=== PATIENT | male | born 1975 | race Caucasian/White ===

== ENCOUNTER 2018-07-03 15:09 | Emergency (ER) | payer MEDICAID ==
[~2018-07-03] VITALS: Ht 177.8 cm; Wt 112.0 kg
[2018-07-03 15:27] VITALS: Ht 177.8 cm; Wt 112.0 kg
[2018-07-03 17:54] VITALS: BP 128/87
== END 2018-07-03 17:54 | disposition home or self-care (01) ==
LOC: ED 15:09
DX: S91.332A Puncture wound without foreign body, left foot, initial encounter (principal); K04.7 Periapical abscess without sinus; I10 Essential (primary) hypertension; E11.9 Type 2 diabetes mellitus without complications; X58.XXXA Exposure to other specified factors, initial encounter; Y93.89 Activity, other specified; Y92.89 Other specified places as the place of occurrence of the external cause; Y99.8 Other external cause status
CPT/HCPCS: 82962; 90715; J2001

== ENCOUNTER 2018-07-05 18:23 | Emergency (ER) | payer MEDICAID ==
[~2018-07-05] VITALS: Ht 182.9 cm; Wt 112.5 kg
[2018-07-05 18:38] VITALS: Ht 182.9 cm; Wt 112.5 kg
[2018-07-05 19:54] VITALS: BP 165/98
== END 2018-07-05 19:54 | disposition home or self-care (01) ==
LOC: ED 18:23
DX: H60.00 Abscess of external ear, unspecified ear (principal); I10 Essential (primary) hypertension; E11.9 Type 2 diabetes mellitus without complications

== ENCOUNTER 2018-07-07 14:50 | Emergency (ER) | payer MEDICAID ==
[~2018-07-07] VITALS: Ht 182.9 cm; Wt 112.0 kg
[2018-07-07 14:56] VITALS: Ht 182.9 cm; Wt 112.0 kg
[2018-07-07 16:13] VITALS: BP 149/83
== END 2018-07-07 16:13 | disposition home or self-care (01) ==
LOC: ED 14:50
DX: L02.11 Cutaneous abscess of neck (principal); E11.9 Type 2 diabetes mellitus without complications; I10 Essential (primary) hypertension; E66.9 Obesity, unspecified; Z68.33 Body mass index [BMI] 33.0-33.9, adult